=== PATIENT | female | born 1980 | race American Indian/Alaskan Native ===

== ENCOUNTER 2020-11-20 12:11 | Inpatient (IN) | payer OTHER ==
[~2020-11-20] VITALS: Ht 154.9 cm; Wt 79.4 kg
[2020-11-20] MEDS ORDERED: PRENATAL TABLE1 EAC1 PO (15:19)
[2020-11-20] MEDS ORDERED: IRON PO (15:20)
[2020-11-20] MEDS ORDERED: CHILDREN'S ASPI81 MG PO (15:21)
[2020-11-20] MEDS ORDERED: NEXIUM10 MG PO (15:21)
[2020-11-21] MEDS ORDERED: INTEGRA F CAPS1 EAC1 (14:12)
[2020-11-21] MEDS ORDERED: IRON236 MG PO (14:13)
== END 2020-11-22 11:23 | disposition home or self-care (01) | DRG 833 ==
LOC: NST 12:11 → LDR 13:31 → SURG-SUITE 11-21 12:46
PROVIDERS: ADMIT Obstetrics & Gynecology; ATTEND Obstetrics & Gynecology
DX: O47.03 False labor before 37 completed weeks of gestation, third trimester (principal); Z3A.35 35 weeks gestation of pregnancy; Z20.822 Contact with and (suspected) exposure to COVID-19

== ENCOUNTER 2020-11-27 12:57 | Outpatient (CLI) | payer OTHER ==
[~2020-11-27 12:57] MED LIST: CHILDREN'S ASPI81 MG PO; INTEGRA F CAPS1 EAC1; IRON PO; IRON236 MG PO; NEXIUM10 MG PO; PRENATAL TABLE1 EAC1 PO
== END 2020-11-27 13:53 | disposition home or self-care (01) ==
LOC: NST 12:57
PROVIDERS: ATTEND Obstetrics & Gynecology
DX: Z34.83 Encounter for supervision of other normal pregnancy, third trimester (principal)

== ENCOUNTER 2020-12-06 13:15 | Inpatient (IN) | payer OTHER ==
[~2020-12-06] VITALS: Ht 154.9 cm; Wt 81.2 kg
[~2020-12-06 13:15] MED LIST changes: +NEXIUM 24HR20 MG PO; -NEXIUM10 MG PO
[2020-12-09] MEDS ORDERED: ZYRTEC10 M3 PO (21:46)
== END 2020-12-11 14:57 | disposition home or self-care (01) | DRG 807 ==
LOC: SURG-SUITE 12-09 21:30 → LDR 12-09 21:30 → SURG-SUITE 12-10 09:39 → OB/GYN 12-19 13:15
PROVIDERS: ADMIT Obstetrics & Gynecology Maternal & Fetal Medicine; ATTEND Obstetrics & Gynecology Maternal & Fetal Medicine
PROC: 0W8NXZZ Division of Female Perineum, External Approach (ICD-10-PCS; 2020-12-09)
PROC: 4A1HXFZ Monitoring of Products of Conception, Cardiac Rhythm, External Approach (ICD-10-PCS; 2020-12-09)
PROC: 10E0XZZ Delivery of Products of Conception, External Approach (ICD-10-PCS; principal; 2020-12-10)
PROC: 0KQM0ZZ Repair Perineum Muscle, Open Approach (ICD-10-PCS; 2020-12-10)
DX: O70.1 Second degree perineal laceration during delivery (principal); Z37.0 Single live birth; O63.1 Prolonged second stage (of labor); O14.95 Unspecified pre-eclampsia, complicating the puerperium; Z3A.38 38 weeks gestation of pregnancy; Z20.822 Contact with and (suspected) exposure to COVID-19

== ENCOUNTER 2025-07-22 12:09 | Outpatient (CLI) | payer OTHER ==
[~2025-07-22 12:09] MED LIST changes: +ZYRTEC10 M3 PO
== END 2025-07-22 13:14 | disposition home or self-care (01) ==
LOC: NST 12:09
PROVIDERS: ATTEND Obstetrics & Gynecology
DX: Z34.83 Encounter for supervision of other normal pregnancy, third trimester (principal)

== ENCOUNTER 2025-07-25 11:02 | Outpatient (CLI) | payer OTHER | END 2025-07-25 12:25 | disposition home or self-care (01) | LOC: NST 11:02 | PROVIDERS: ATTEND Obstetrics & Gynecology | DX: Z34.83 Encounter for supervision of other normal pregnancy, third trimester (principal) ==